=== PATIENT | female | born 1985 | race Caucasian/White ===

== ENCOUNTER 2016-12-01 04:53 | Emergency (ER) | payer OTHER ==
[2016-12-01 05:11] VITALS: TEMP 98.9; BMI 35.6
[2016-12-01] MEDS ORDERED: TETANUS-DIPTHERIA-ACEL PERTUSS 0.5 ML SYR IM ONE (05:18)
[2016-12-01] MEDS ORDERED: LIDOCAINE 1% 5 ML (METHYLPARABEN FREE) INF ONE (05:18)
--- NOTE | 2016-12-01 05:22 | EDPRACDOC ---
- General Information Chief Complaint: Wound Information Source: Patient Mode of Arrival:: Car Home Medications: Home Medications Ibuprofen [Advil] 200 mg PO Q6-8H PRN 02/14/16 Cephalexin Monohydrate [Keflex] 500 mg PO Q8H #30 cap 12/01/16 Oxycodone HCl [Roxicodone] 5 mg PO Q4-6H PRN #15 tablet 12/01/16 Allergies/Adverse Reactions: Allergies Allergy/AdvReac Type Severity Reaction Status Date / Time sumatriptan [From Imitrex] Allergy Severe Anaphylaxis Verified 12/01/16 05:11 * Sulfa (Sulfonamide Allergy Hives* Verified 12/01/16 05:11 Antibiotics) sumatriptan succinate Allergy Edema-Local Verified 12/01/16 05:11 [From Imitrex] ized - History of Present Illness Onset: [employer] HPI: PT PRESENTS WITH LEFT 2ND 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 REPORTS DIFFICULTY FULLY EXTENDING HER FINGER. - Tetanus Status Last Tetanus: No - Pain Pain Severity: Mild Bleeding: Reports: Controlled ED Past Medical History - History Reviewed Yes Nurses notes reviewed and agree except as marked - Patient Medical History Neurological History: Reports: Cerebrovascular Accident, Migraine GI/ History: Reports: Gastroesophageal Reflux Psychological History: Reports: Anxiety. Denies: Depression Systemic History: Denies: Cancer Surgical History: Reports: Cholecystectomy. Denies: Hysterectomy - Family Medical History Reports: Hypertension, Diabetes, Cancer, Stroke, Cardiac Disorders - Social Medical History Smoking Status: Heavy tobacco smoker (5 or more cigarettes/day or daily pipe/ cigar) Lives In: Home EDM Review of Systems - Review of Systems ROS Negative Except as Marked: Yes All systems reviewed and were negative except as marked Musculoskeletal: Hand (LEFT DORSAL 2ND DIGIT LACERATION) - Physical Exam Constitutional: Alert Oriented to: Time, Person, Place Last recorded Vital Signs: Last Vital Signs Temp 98.9 F 12/01/16 05:04 Pulse 72 12/01/16 05:04 Resp 18 12/01/16 05:04 BP 126/74 12/01/16 05:04 Pulse Ox 94 12/01/16 05:04 Oxygen Pulse Oxygen Saturation 94 O2 Device Room Air Oxygen Flow Rate Fraction of Inspired Oxygen ( FIO2) - HEENT Head: negative: Deformity, Laceration Eye Exam: negative: Conjunctival Injection, Pale Conjunctiva Neck: negative: Limited ROM - Integumentary Skin: Warm, Dry Integumentary Comment: LEFT DORSAL SECOND DIGIT WITH LACERATION OVERLYING DIP. - Neurologic Memory Impaired: Normal Motor Function: Normal Mood Description: Anxious, Appropriate Thought: Coherent Perception: Normal ED Procedures - Suture/Laceration Suture #1 Left Distal Finger Wound Length (cm): 1 Wound's Depth, Shape: flap Wound Explored: clean Betadine Prep?: Yes Anesthesia: 1% Lidocaine Volume Anesthetic (ccs): 3 (WITH DIGITAL BLOCK) Wound Repaired With: Sutures Suture Size/Type: 4:0, nylon Number of Sutures: 5 Layer Closure?: Yes Deep Layer Suture Size/Type: 5:0, dexon Number Deep Layer Sutures: 1 (RECONNECTED LACERATED TENDON) Progress: AFTER SUTURE THROUGH LACERATED TENDON PATIENT WAS ABLE TO MORE FULLY EXTEND HER FINGER. Decision Time to Discharge: 06:18 - Departure Yes I personally saw and evaluated the patient. Disposition: Home Condition: Stable Final Diagnosis: Finger laceration involving tendon Qualifiers: Encounter type: initial encounter Qualified Code(s): S61.219A - Laceration without foreign body of unspecified finger without damage to nail, initial encounter; S61.209A - Unspecified open wound of unspecified finger without damage to nail, initial encounter Instructions: Laceration (ED) Education/Counseling Given To: Patient Education/Counseling Given Regarding: Diagnosis, Treatment, Prognosis, Follow Up Referrals: None,No Provider [Primary Care Provider] - Call for Appointment Prescriptions: Cephalexin Monohydrate [Keflex] 500 mg PO Q8H #30 cap Oxycodone HCl [Roxicodone] 5 mg PO Q4-6H PRN #15 tablet PRN Reason: Breakthrough Pain Additional Instructions: KEEP WOUND CLEAN AND DRY. IF YOU HAVE RANGE OF MOTION DEFICITS AFTER YOUR FINGER HEALS YOU MAY NEED TO SEE A HAND SURGEON FOR MORE EXTENSIVE TENDON REPAIR.
[2016-12-01 06:39] VITALS: BP 130/66; PULSE 64
== END 2016-12-01 06:38 | disposition home or self-care (01) ==
LOC: ED 04:53
DX: S61.209A Unspecified open wound of unspecified finger without damage to nail, initial encounter (principal); W31.9XXA Contact with unspecified machinery, initial encounter; Y93.9 Activity, unspecified; Y99.0 Civilian activity done for income or pay; Z23 Encounter for immunization
CPT/HCPCS: 12051; 80307; 90471; 90715; 99283; J3490